=== PATIENT | female | born 1950 | race Caucasian/White ===

== ENCOUNTER 2025-07-11 10:27 | Day surgery (SDC) | payer MEDICARE, BC ==
[~2025-07-11] VITALS: Ht 167.6 cm; Wt 70.9 kg
[~2025-07-11 10:27] MED LIST: APIX5TAB3 PO; BISA-78 PO; CHONDROITIN PO; CYAN-34 PO; DOXY25TA PO; FLEC50TA PO; LOP12.5T PO; MULT-1085 PO; ROSU20TA98 PO
[2025-07-11] MEDS ORDERED: UBID200C37 PO (11:04)
[2025-07-11 11:34] VITALS: BP 122/76; PULSE 57; RESP 16; TEMP 98.5; O2SAT 99
[2025-07-11 11:44] LABS: MEAN PLATELET VOLUME 8.8 FL (7.4-10.4); RED CELL DISTRIBUTION WIDTH 13.2 % (11.5-14.5)
[2025-07-11 11:54] LABS: INR 1.1 INR
[2025-07-11 12:03] VITALS: RESP 16; O2SAT 99
[2025-07-11 12:03] LABS: CREATININE 0.85 MG/DL (0.40-0.90); TOTAL CARBON DIOXIDE 26.7 MMOL/L (24-32); eGFR 65 ML/MIN
[2025-07-11] MEDS ORDERED: midazolam 1 mg/ML 2ml injection ONE (12:04)
[2025-07-11] MEDS ORDERED: fentaNYL/PF 50MCG/1 ML 2ML syringe ONE (12:04)
[2025-07-11 13:14] VITALS: BP 119/70; PULSE 69; RESP 10; O2SAT 97
[2025-07-11 13:30] VITALS: BP 110/77; PULSE 61; RESP 15; O2SAT 99
[2025-07-11] MEDS ORDERED: ASPI-280 PO (13:42)
[2025-07-11] MEDS ORDERED: CLOP75TA33 PO (13:42)
[2025-07-11 13:45] VITALS: BP 116/71; PULSE 60; RESP 14; O2SAT 97
--- NOTE | 2025-07-11 19:03 | CARDIOLOGY REPORT ---
APPROVED REPORT EXAM: Focused, limited transesophageal echocardiogram with color flow Doppler. Patient Location: [facility] Blood Pressure: 163/79 mmHg Heart Rate: 93 bpm Rhythm: SINUS Indications POST WATCHMAN FLX DIAMOND CLOSURE DEVICE IMPLANTATION FOLLOW UP EVALUATE DEVICE FOR THROMBUS, POSITION, AND SEAL 27 mm WATCHMAN FLX DIAMOND CLOSURE DEVICE DARRYL PROBE PASSED BY: Javad Molina MD Brake Operator: Javad Molina MD Previous echo: 06/07/25 [facility] (EF 65%, trivial anterior pericardial effusion, small L to R shunt s/p transseptal puncture) LEFT VENTRICLE Normal LV size and wall thickness. Overall systolic function is normal. LVEF is 60-65%. ATRIA LA is moderately dilated. Intact interatrial septum with small L to R shunt s/p transseptal puncture. Left upper pulmonary vein identified. Successfully occluded left atrial appendage with well visualized Watchman device well positioned without thrombus. No residual flow detected around device in all v iews. GREAT VESSELS Descending aorta is normal in size. PERICARDIUM Normal pericardium. No effusion. CONCLUSION Normal LV size and wall thickness. Overall systolic function is normal. LVEF is 60-65%. LA is moderately dilated. Intact interatrial septum with small L to R shunt s/p transseptal puncture. Left upper pulmonary vein identified. Successfully occluded left atrial appendage with well visualized Watchman device well positioned without thrombus. No residual flow detected around device in all views. Normal pericardium. No effusion. Conclusion Normal LV size and wall thickness. Overall systolic function is normal. LVEF is 60-65%. LA is moderately dilated. Intact interatrial septum with small L to R shunt s/p transseptal puncture. Left upper pulmonary vein identified. Successfully occluded left atrial appendage with well visualized Watchman device well positioned without thrombus. No residual flow detected around device in all views. Normal pericardium. No effusion.
== END 2025-07-11 14:20 | disposition home or self-care (01) ==
LOC: SSTAY O 10:27
PROVIDERS: ATTEND Student in an Organized Health Care Education/Training Program
DX: I49.5 Sick sinus syndrome (principal); I48.0 Paroxysmal atrial fibrillation; E78.5 Hyperlipidemia, unspecified; F10.988 Alcohol use, unspecified with other alcohol-induced disorder; G47.00 Insomnia, unspecified; I31.39 Other pericardial effusion (noninflammatory); I34.81 Nonrheumatic mitral (valve) annulus calcification; G25.81 Restless legs syndrome; I47.10 Supraventricular tachycardia, unspecified; Z95.818 Presence of other cardiac implants and grafts; Z79.899 Other long term (current) drug therapy; Z95.0 Presence of cardiac pacemaker; Y90.9 Presence of alcohol in blood, level not specified
CPT/HCPCS: 36415; 80048; 85025; 85610; 93312; 93325; J2250; J3010; J7030; 99152